=== PATIENT | male | born 1955 | race Caucasian/White ===

== ENCOUNTER → 2017-08-24 | Outpatient (CLI) | payer MEDICAID ==
[~2017-08-24] MED LIST: ACCUPRIL20 MG PO; ASPIRIN 81M81 MG/TA2 PO; CELEXA 20MG20 MG/TAB PO; KLONOPIN 1MG1 MG PO; LIORESAL 1010 MG/TAB PO; MOBIC 7.5MG7.5 MG; MULTAQ400 MG PO; NORCO 325 MG-51 TAB PO; PERCOCET 325 MG1 TA2 PO; PREDNISONE20 MG PO; PRINIVIL20 MG PO; PRINZIDE 12.5 M1 TA1 PO; SINEMET 25/101 UDTAB PO; UNABLE; WELLBUTRIN 75MG75 MG PO; ZANAFLEX2 MG PO; ZOCOR 20MG20 MG; ZOCOR 20MG20 MG PO; ZOCOR 40MG40 MG PO
[2017-08-24 16:11] LABS: AMPHETAMINE URINE NEGATIVE; BARBITURATES URINE NEGATIVE; BENZODIAZEPINES URINE NEGATIVE; BUPRENORPHINE URINE NEGATIVE; METHADONE URINE NEGATIVE; OPIATES URINE NEGATIVE; OXYCODONE URINE NEGATIVE; PHENCYCLIDINE URINE NEGATIVE; PROPOXYPHENE URINE NEGATIVE; THC CANNABINOIDS URINE NEGATIVE
== END ==
LOC: COL.LAB 15:06
PROVIDERS: Family Medicine
DX: G89.29 Other chronic pain (principal)

== ENCOUNTER → 2018-05-18 | Outpatient (CLI) | payer MEDICAID ==
[2018-05-18 16:09] LABS: COLLECTION METHOD CLEAN CATCH
[2018-05-18 16:24] LABS: BASO # 0.1 (0.0-0.2); BASO % 0.8 % (0.0-2.0); EOS # 0.1 (0.0-0.7); EOS % 1.6 % (0-4.0); GRAN # 6.5 (1.4-6.5); GRAN % 72.1 % (42.2-75.2); HEMATOCRIT 49.6 % (42.0-52.0); HEMOGLOBIN 16.6 g/dl (13.5-18.0); LYMPH # 1.4 (1.2-3.4); LYMPH % 15.9 % (20.0-51.0); MEAN CELL VOLUME 92 fl (80.0-100.0); MEAN CORPUSCULAR HEMOGLOBIN 31 pg (27.0-31.0); MEAN CORPUSCULAR HGB CONC 34 g/dl (33.0-37.0); MEAN PLATELET VOLUME 11.1 fl (7.4-10.4); MONO # 0.8 (0.1-0.6); PLATELET COUNT 260 K/mm3 (130-400); RED BLOOD COUNT 5.42 M/mm3 (4.20-5.60); REDCELL DISTRIBUTION WIDTH-CV 12.7 % (11.5-14.5)
[2018-05-18 16:24] LABS: MUCOUS Present /lpf; PH 5 (5-8); SQUAMOUS EPITHELIAL 0-2 /hpf; URINE APPEARANCE Cloudy; URINE BACTERIA Rare /hpf; URINE BILIRUBIN Negative (NEGATIVE); URINE BLOOD 1+ (NEGATIVE); URINE COLOR Amber; URINE GLUCOSE Negative (NEGATIVE); URINE KETONE Trace (NEGATIVE); URINE LEUKOCYTE ESTERASE 2+ (NEGATIVE); URINE NITRATE Negative (NEGATIVE); URINE PROTEIN(semi-quant) 2+ (NEGATIVE); URINE WBC >50 /hpf
[2018-05-18 16:27] LABS: ALBUMIN 4.1 gm/dL (3.5-5.0); BILIRUBIN,TOTAL 0.8 mg/dL (0.0-1.0); CALCIUM 9.6 mg/dL (8.4-10.2); CHOLESTEROL RISK RATIO 3.3; CREATININE, serum 1.29 mg/dL (0.66-1.25); POTASSIUM 4.6 mmol/L (3.4-5.0); TOTAL PROTEIN 7.2 gm/dL (6.4-8.2)
== END ==
LOC: COL.LAB 08:58
PROVIDERS: Family Medicine
DX: E78.00 Pure hypercholesterolemia, unspecified (principal); I10 Essential (primary) hypertension; R31.9 Hematuria, unspecified; N39.0 Urinary tract infection, site not specified

== ENCOUNTER 2018-10-29 11:30 | Emergency (ER) | payer MEDICAID ==
[~2018-10-29] VITALS: Ht 180.3 cm; Wt 86.4 kg
[2018-10-29 11:33] VITALS: BP 133/95; PULSE 60; TEMP 97.6
== END 2018-10-29 12:12 | disposition home or self-care (01) ==
LOC: COL.ER 11:30
DX: S29.9XXA Unspecified injury of thorax, initial encounter (principal); Y04.8XXA Assault by other bodily force, initial encounter

== ENCOUNTER 2019-01-02 08:21 | Emergency (ER) | payer MEDICAID | END 2019-01-02 09:33 | disposition home or self-care (01) | LOC: COL.ER 08:21 | DX: R22.2 Localized swelling, mass and lump, trunk (principal); F17.210 Nicotine dependence, cigarettes, uncomplicated; Z79.82 Long term (current) use of aspirin ==

== ENCOUNTER 2019-01-25 08:41 | Inpatient (IN) | payer MEDICAID ==
[~2019-01-25] VITALS: Ht 172.7 cm; Wt 80.3 kg
[2019-01-25] VITALS (50 sets, daily range): BP systolic 128–158; BP diastolic 78–92; PULSE 60–79; TEMP 97–98.1; O2SAT 93–100
[~2019-01-25 08:41] MED LIST changes: +AMOXICILLIN 8751 TAB PO; +DILAUDID 2MG TAB2 MG PO; +KLONOPIN 0.5MG0.5 MG PO; +ZOCOR 10MG10 MG PO; +ZOLOFT 50MG50 MG PO
[2019-01-25 08:49] LABS: ARTERIAL BLD GAS O2 SATURATION 94.3 % (92-100); ARTERIAL BLD GAS TCO2 CT 25.8; ARTERIAL BLOOD GAS BASE EXCESS -0.2 (-2-2); ARTERIAL BLOOD GAS HCO3 24.6 meq/L (22-26); ARTERIAL BLOOD GAS PCO2 40.6 mmHg (35-45); ARTERIAL BLOOD GAS PO2 72.2 mmHg (80-100)
[2019-01-25 08:53] LABS: BASO # 0.1 (0.0-0.2); BASO % 0.8 % (0.0-2.0); EOS # 0.2 (0.0-0.7); EOS % 2.5 % (0-4.0); GRAN # 5.3 (1.4-6.5); GRAN % 61.8 % (42.2-75.2); HEMATOCRIT 44.5 % (42.0-52.0); LYMPH # 2.2 (1.2-3.4); LYMPH % 25.3 % (20.0-51.0); MEAN CELL VOLUME 94 fl (80.0-100.0); MEAN CORPUSCULAR HEMOGLOBIN 32 pg (27.0-31.0); MEAN CORPUSCULAR HGB CONC 34 g/dl (33.0-37.0); MEAN PLATELET VOLUME 10.6 fl (7.4-10.4); MONO # 0.8 (0.1-0.6); MONO % 9.1 % (1.7-9.3); PLATELET COUNT 171 K/mm3 (130-400); RED BLOOD COUNT 4.73 M/mm3 (4.20-5.60); REDCELL DISTRIBUTION WIDTH-CV 14.1 % (11.5-14.5)
[2019-01-25 09:04] LABS: ALANINE AMINOTRANSFERASE 24 U/L (21-72); ALBUMIN 3.6 gm/dL (3.5-5.0); ALKALINE PHOSPHATASE 69 U/L (50-136); ANION GAP 5 mmol/L (7-16); AST,SGOT 20 U/L (15-37); BILIRUBIN,TOTAL 0.5 mg/dL (0.0-1.0); BLOOD UREA NITROGEN 14 mg/dL (9-20); CALCIUM 9.1 mg/dL (8.4-10.2); CARBON DIOXIDE 24 mmol/L (22-30); CHLORIDE 115 mmol/L (98-107); CREATININE, serum 1.07 mg/dL (0.66-1.25); GLUCOSE 101 mg/dL (74-106); POTASSIUM 3.7 mmol/L (3.4-5.0); SODIUM 144 mmol/L (137-145); TOTAL PROTEIN 6.3 gm/dL (6.4-8.2)
[2019-01-25 09:05] LABS: ACETAMINOPHEN < 10 ug/mL (10-30); ALCOHOL(ethanol),MEDICAL < 10 mg/dL; SALICYLATE < 1.0 mg/dL
[2019-01-25 09:17] LABS: TROPONIN-I < 0.012 ng/mL (0.000-0.035)
[2019-01-25 09:19] LABS: PROLACTIN 16.8 ng/mL (3.7-17.9)
[2019-01-25 09:35] LABS: LACTIC ACID 1.4 mmol/L (0.4-2.0)
--- NOTE | 2019-01-25 09:54 | NUR ---
SW responded to the ED to provide support for patient's . Patient came in via EMS with respiratory distress. SW stayed with patient's until she was able to see her . SW then informed patient's that patient will be admitted to the ICU and that she is able to go sit with him until he is admitted.
[2019-01-25 10:03] LABS: COLLECTION METHOD CATHETER
[2019-01-25 10:09] LABS: PH 7 (5-8); SQUAMOUS EPITHELIAL None Seen /hpf; URINE APPEARANCE Clear; URINE BACTERIA None Seen /hpf; URINE BILIRUBIN Negative (NEGATIVE); URINE BLOOD Negative (NEGATIVE); URINE COLOR Straw; URINE GLUCOSE Negative (NEGATIVE); URINE KETONE Negative (NEGATIVE); URINE LEUKOCYTE ESTERASE Negative (NEGATIVE); URINE NITRATE Negative (NEGATIVE); URINE PROTEIN(semi-quant) Negative (NEGATIVE); URINE RBC None Seen /hpf; URINE UROBILINOGEN Negative (NEGATIVE)
--- NOTE | 2019-01-25 10:20 | NUR ---
PATIENT ARRIVED TO ICU ROOM 1 VIA STRETCHER FROM THE ER. PATIENT WAS PLACED ON THE MONITOR. ALL VITAL SIGNS STABLE AT THIS TIME. HE IS CURRENTLY ON 2L NC. RESPONSIVENESS WAS CHECKED WITH STERNAL RUB. PATIENTS EYES OPENED AND HE CONTINUED TO STAY AWAKE. HIS SPEECH WAS VERY GARBLED AT THIS TIME.
[2019-01-25 10:36] LABS: TRICYCLIC ANTIDEPRESS URINE NEGATIVE
--- NOTE | 2019-01-25 10:47 | NUR ---
Initial visit; Patient brought into Emergency Services. Veneer Sorter was called to research consultant to his Chetna. Veneer Sorter listened and offered strength and prayer in attempts to calm her. She suffers from anxiety and fear of his . Veneer Sorter will contact her Air Conditioning Specialist as well.
[2019-01-25] MEDS ORDERED: LIORESAL 1010 MG/TAB PO (11:25)
[2019-01-25] MEDS ORDERED: NORCO 325 MG-51 TAB PO (11:26)
--- NOTE | 2019-01-25 18:00 | NUR ---
PATIENT MUCH MORE AWAKE IN ROOM. HE IS HOLLERING FOR HIS . HE STATES HE WANTS TO GO HOME. ATTEMPTS WERE MADE TO REORIENT HIM. HE WAS GIVEN SOME WATER TO DRINK. DENIES ANY FURTHER NEEDS.
--- NOTE | 2019-01-25 19:00 | NUR ---
REPORT GIVEN TO JASMYN WORLEY.
--- NOTE | 2019-01-25 19:00 | NUR ---
Bedside report received from Rosalie Esparza RN. Pt resting in bed with eyes intermittently open and closed throughout report.
--- NOTE | 2019-01-25 22:30 | NUR ---
Pts spouse arrived onto the unit. At that time pt hollered out, pts spouse heard the noise and anxiety was seen on spouses face at that time knowing it was "my ." This nurse walked down to pts room from the medication room at that time once hollering out was heard, a few moments later patients spouse arrived at bedside notifying pt "if you dont calm down you are going to have your spasm. They are trying to help you. If you dont calm down they wont let you come home with me." Pt kept reporting to staff the need to "sit up" although pt was already in a high fowlers position, as high as the bed would allow for a seated position in addition to two pillows behind the pts head. Pt was assisted, with two staff members, boosted higher in the bed with noted improvement in symptoms until pt requested to lay back. Once staff left the room with spouse moments later another visitor arrived, with bed once again adjusted to a high fowlers position and a towel beind pts head. Pain medication was provided due to complaints and external signs of pain at this time.
[2019-01-26] VITALS: BP 153/90; PULSE 79
--- NOTE | 2019-01-26 00:30 | NUR ---
Pt resting in high fowlers position and is awake talking. Pt is alone in the room at this time and has been observed intermittently looking up to the ceiling above the pts left shoulder repeating "your a liar, your lying". When the pt was asked about what was being said pt kept repeating "Angelo is a liar. He doesnt lie. Do you lie?" Pts neurological status was assessed at this time although pt was unable to answer most of the orientation questions with continued confusion noted in conversation.
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
--- NOTE | 2019-01-26 01:50 | NUR ---
Report provided to Brennan VINES.
[2019-01-26 04:00] VITALS: BP 159/76; PULSE 79
[2019-01-26 05:51] LABS: BASO # 0.1 (0.0-0.2); BASO % 0.3 % (0.0-2.0); GRAN % 87.4 % (42.2-75.2); HEMATOCRIT 42.2 % (42.0-52.0); HEMOGLOBIN 13.9 g/dl (13.5-18.0); LYMPH # 1.1 (1.2-3.4); LYMPH % 5.1 % (20.0-51.0); MEAN CELL VOLUME 96 fl (80.0-100.0); MEAN CORPUSCULAR HEMOGLOBIN 32 pg (27.0-31.0); MEAN CORPUSCULAR HGB CONC 33 g/dl (33.0-37.0); MONO # 1.4 (0.1-0.6); MONO % 6.2 % (1.7-9.3); PLATELET COUNT 173 K/mm3 (130-400); RED BLOOD COUNT 4.39 M/mm3 (4.20-5.60); REDCELL DISTRIBUTION WIDTH-CV 14.4 % (11.5-14.5)
[2019-01-26 06:05] LABS: CALCIUM 8.9 mg/dL (8.4-10.2); CREATININE, serum 1.03 mg/dL (0.66-1.25); POTASSIUM 3.8 mmol/L (3.4-5.0)
--- NOTE | 2019-01-26 07:15 | NUR ---
BEDSIDE REPORT RECEIVED FROM JASMYN MURRIETA. PATIENT AWAKE AND ALERT. HE IS CONFUSED AND TALKING ABOUT NEEDING TO GET TO HIS DOCTOR'S OFFICE TO SEE HIS PCP. I ATTEMPT TO REORIENT THE PATIENT AND EXPLAIN TO HIM THAT HE IS IN THE HOSPITAL. PATIENT IS REPOSITIONED AT THIS TIME. CALL LIGHT WITHIN REACH.
[2019-01-26 08:30] VITALS: BP 160/91; PULSE 79; TEMP 97.4
--- NOTE | 2019-01-26 08:55 | NUR ---
Follow-up visit; Patient seems agitated regarding medication he thinks he is supposed to be taking. Outreach Nurse attempted to address his spiritual needs with little results but wished him well.
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
[2019-01-26 12:00] VITALS: BP 157/118; PULSE 80
[2019-01-26 12:27] LABS: BASO # 0.1 (0.0-0.2); BASO % 0.3 % (0.0-2.0); EOS % 0.1 % (0-4.0); GRAN # 16.3 (1.4-6.5); GRAN % 87.4 % (42.2-75.2); HEMATOCRIT 40.9 % (42.0-52.0); HEMOGLOBIN 13.5 g/dl (13.5-18.0); LYMPH # 1.1 (1.2-3.4); LYMPH % 6.1 % (20.0-51.0); MEAN CELL VOLUME 96 fl (80.0-100.0); MEAN CORPUSCULAR HEMOGLOBIN 32 pg (27.0-31.0); MEAN CORPUSCULAR HGB CONC 33 g/dl (33.0-37.0); MEAN PLATELET VOLUME 10.8 fl (7.4-10.4); MONO # 1.1 (0.1-0.6); MONO % 5.7 % (1.7-9.3); PLATELET COUNT 161 K/mm3 (130-400); RED BLOOD COUNT 4.28 M/mm3 (4.20-5.60); REDCELL DISTRIBUTION WIDTH-CV 14.5 % (11.5-14.5)
--- NOTE | 2019-01-26 13:15 | NUR ---
[facility] HERE TO EVALUATE PATIENT, PER DR. DWAINE RODRIGUEZ.
--- NOTE | 2019-01-26 14:00 | NUR ---
EVERY TIME THIS RN ENTERS THE ROOM, HE REPEATEDLY TELLS ME WHAT HAS HAPPENED THROUGH THE DAY. HE TALKS ABOUT A "DON" OR "THAIS" IN HIS ROOM (THIS PERSON IS NOT THERE). HE TELLS ME ABOUT MISSING A DOCTORS APPOINTMENT WITH HIS PCP AND IS VERY WORRIED ABOUT GETTING IT RESCHEDULED. I TRY TO REASSURE HIM THAT HE WILL HAVE A HOSPITAL FOLLOW UP SET UP AT DISCHARGE. I ATTEMPT TO REORIENT THE PATIENT MULTIPLE TIMES TODAY. HE QUICKLY BECOMES, CONFUSED, PARANOID, AND GETS AGITATED AT LOUD NOISES. I HAVE ALSO ATTEMPTED TO REDUCE THE NOISE IN HIS ROOM. WILL CONTINUE TO MONITOR
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
[2019-01-26 16:19] VITALS: BP 129/84; PULSE 80; TEMP 98.7
--- NOTE | 2019-01-26 18:00 | NUR ---
PATIENT IS ASSISTED WITH GETTING SET UP FOR SUPPER. NO DENTURES COULD BE FOUND IN THE ROOM OR WITH HIS BELONGINGS. THE PATIENT IS REMINDED TO CHEW HIS FOOD THOROUGHLY AND BE CAREFUL WITH EATING SO THAT HE DOESN'T CHOKE. HE VERBALIZES UNDERSTANDING.
[2019-01-26 20:00] VITALS: BP 148/92; PULSE 73; TEMP 98.1
[2019-01-27] VITALS: BP 140/89; PULSE 70; TEMP 98
[2019-01-27 04:00] VITALS: BP 142/81; PULSE 69; TEMP 98
[2019-01-27 05:35] LABS: BASO % 0.3 % (0.0-2.0); EOS % 0.2 % (0-4.0); GRAN # 10.4 (1.4-6.5); HEMATOCRIT 41.2 % (42.0-52.0); HEMOGLOBIN 13.6 g/dl (13.5-18.0); LYMPH # 1.2 (1.2-3.4); LYMPH % 9.2 % (20.0-51.0); MEAN CELL VOLUME 96 fl (80.0-100.0); MEAN CORPUSCULAR HEMOGLOBIN 32 pg (27.0-31.0); MEAN CORPUSCULAR HGB CONC 33 g/dl (33.0-37.0); MEAN PLATELET VOLUME 11.1 fl (7.4-10.4); MONO # 1.1 (0.1-0.6); MONO % 8.9 % (1.7-9.3); PLATELET COUNT 160 K/mm3 (130-400); RED BLOOD COUNT 4.31 M/mm3 (4.20-5.60); REDCELL DISTRIBUTION WIDTH-CV 14.3 % (11.5-14.5)
[2019-01-27 05:58] LABS: CALCIUM 9.2 mg/dL (8.4-10.2); CREATININE, serum 0.95 mg/dL (0.66-1.25); POTASSIUM 3.7 mmol/L (3.4-5.0)
[2019-01-27 08:00] VITALS: BP 140/94; PULSE 67; TEMP 98
--- NOTE | 2019-01-27 08:00 | NUR ---
PATIENT SITTING UP IN BED EATING BREAKFAST. HE IS AWAKE AND ALERT. HE CAN ANSWER MOST QUESTIONS APPROPRIATE, HOWEVER HE DOES OCCASSIONAL GET DISTRACTED AND MAKE COMMENTS ABOUT A MAN IN THE CORNER. ASSESSMENT WAS COMPLETED. PATIENT DENIES ANY FURTHER NEEDS AT THIS TIME.
[2019-01-27 12:00] VITALS: BP 148/94; PULSE 67; TEMP 98.2
--- NOTE | 2019-01-27 13:40 | NUR ---
REPORT GIVEN TO JASMYN BULLOCK ON MEDICAL. PATIENT WILL BE TAKEN BY BED TO ROOM 355. HE WAS PLACED ON PORTABLE TELEMETRY. FILIBERTO CALLED AND NOTIFIED OF ROOM CHANGE.
--- NOTE | 2019-01-27 14:22 | NUR ---
RITU had a long discussion with patients , Nidia Payton, about a safe discharge plan. RITU discussed terminal gauger supervisor care being the best option for patient because he is now having more needs at home. Patient was very tearful and feeling like she failed him. RITU reassured her that she was a good etch operator semiconductor wafers for patient but he is at the point where he needs more care and 24/7 nursing. Patient's was agreeable to RITU faxing referrals to all three nursing homes in [place]. She signed a choice form for [facility]. [facility]. [facility]. RITU faxed referrals. Nidia Payton reported she would like to speak with her son, Deacon, and patient's brother, Iraj, about this discharge plan before speaking with patient. RITU also informed that patient will be transfered to medical floor today. RITU will continue to follow.
--- NOTE | 2019-01-27 15:15 | NUR ---
Patient arrived to room 355 from ICu at this time, he is alert/oriented, and denies needs at this time, bed alarm set
[2019-01-27 17:00] VITALS: BP 145/90; PULSE 70; TEMP 98.5
[2019-01-27 18:43] VITALS: BP 160/89; PULSE 71; TEMP 97.7
--- NOTE | 2019-01-27 22:04 | NUR ---
PT resting in bed alert orientedx3. no pain at the moment but reported some abd pain with nausea earlier. chilel is draining freely, no kinks. secured. tele on. bed alarm on . no needs at this time. call light in reach
[2019-01-28 01:02] VITALS: BP 160/93; PULSE 77; TEMP 97.4
[2019-01-28 05:41] VITALS: BP 154/83; PULSE 76; TEMP 98
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
[2019-01-28 07:27] VITALS: BP 144/86; PULSE 81; TEMP 97.7
--- NOTE | 2019-01-28 09:15 | NUR ---
Patient has been very anxious this AM. Trying to get in and out of bed. AM cares done. Bath; hair wash and shave done. Patient voices feeling a lot better. Patient is alert and oriented x 3. Able to tell this nurse it is 2019; he is at the hospital and the president is Joan. There is some noted confusion/delusional ideation. He believes the police are here and are coming to get him to take him to penitentiary. Provided reinforcement that the police were not here, he was in the hospital and not going to penitentiary. He verbalizes understanding but then will ask the same questions over and over again. Patient removes telemetry and refuses to allow this nurse to reapply. Patient assisted to chair with a gait belt and one assist. Very unsteady with transfers; jumpy and hard to move. He is unable to stand on his feet. Patient's breakfast ordered. No other needs at this time. Chair alarm on at this time.
[2019-01-28 10:24] LABS: BASO % 0.3 % (0.0-2.0); EOS % 0.5 % (0-4.0); GRAN # 7.3 (1.4-6.5); HEMATOCRIT 44.7 % (42.0-52.0); HEMOGLOBIN 14.8 g/dl (13.5-18.0); LYMPH # 0.7 (1.2-3.4); LYMPH % 8.3 % (20.0-51.0); MEAN CELL VOLUME 94 fl (80.0-100.0); MEAN CORPUSCULAR HEMOGLOBIN 31 pg (27.0-31.0); MEAN CORPUSCULAR HGB CONC 33 g/dl (33.0-37.0); MEAN PLATELET VOLUME 11.1 fl (7.4-10.4); MONO # 0.7 (0.1-0.6); MONO % 7.6 % (1.7-9.3); PLATELET COUNT 164 K/mm3 (130-400); RED BLOOD COUNT 4.75 M/mm3 (4.20-5.60); REDCELL DISTRIBUTION WIDTH-CV 13.7 % (11.5-14.5)
[2019-01-28 10:44] LABS: CALCIUM 9.4 mg/dL (8.4-10.2); CREATININE, serum 0.86 mg/dL (0.66-1.25); POTASSIUM 4.1 mmol/L (3.4-5.0)
[2019-01-28 11:11] VITALS: BP 148/87; PULSE 73; TEMP 97.9
--- NOTE | 2019-01-28 15:07 | NUR ---
Patient's is here wanting to visit with MD and director social. Manager Ent made aware of wifes request. Call placed to Dr. Dupree regarding the wifes request to visit with her. Patient is more calm then earlier today. Had been up to chair x 4 hours and then back to bed. Ate 80% of his lunch. Patient denies any needs at this time. Up to commode. Large BM. Call light in place
[2019-01-28 16:12] VITALS: BP 131/74; PULSE 72; TEMP 97.6
--- NOTE | 2019-01-28 18:19 | NUR ---
has been in all afternoon off/on. She has had erratic behaviors. Getting upset; loud and throwing her arms around when she wants something or "he is really crazy and I cant handle this anymore" speaks loudly to patient at times sounding as if she is yelling at the patient. Patient is remained alert and oriented but has moments that he is talking about things that are not understandable. Noted when listening to patient he can be understandable and redirected. Douglas patent with clear yellow urine.
[2019-01-28 20:37] VITALS: BP 112/70; PULSE 81; TEMP 97.4
--- NOTE | 2019-01-28 21:00 | NUR ---
PT resting in bed, no pain. Alert and oriented to self but not place. foleu draining freely, no kinks. pt reports no needs at this time. call light in reach. bed alrm on
--- NOTE | 2019-01-29 | NUR ---
pt began to become aggitated. yelling "my is out dancing and fucking with another man, see she is right there! dont you hear her" "look there is Nidia Pires with Angelo" "look there is a baby, Higinio, she is scared" pt states seeing cars in hallway, seeing and hearing Nidia Pires and Angelo. trying to get out of bed. this nurse call hospitalist, 0.5 mg of ativan odered and given. one on one sitter placed at this time. will continue to monitor. no needs at this time. bed alrm on sitter in place.
[2019-01-29 00:22] VITALS: BP 133/86; PULSE 86; TEMP 98
--- NOTE | 2019-01-29 01:47 | NUR ---
pt sleeping, sitter removed
--- NOTE | 2019-01-29 05:40 | NUR ---
pt had a few episoded of wakening and confusion. had a sitter 2 hours during night d/t extreme agitation- one time 0.5mg dose of ativan given- pt camled 45 mins after med. resting at this time with bed alarm in. chilel is draining freely. no kinks, secured to leg. pt on RA. no needs at this time. call light with pt.
--- NOTE | 2019-01-29 07:16 | NUR ---
report given to JASMYN Rodriguez. pt reports no needs at this time
[2019-01-29 07:26] VITALS: BP 159/82; PULSE 74; TEMP 98.6
--- NOTE | 2019-01-29 09:43 | NUR ---
PATIENT ASSESSMENT COMPLETED. HE IS IN BED BUT KEEPS LOOKING OUT IN THE HALLWAY LOOKING FOR HIS FAMILY AND WHEELCHAIR. BED ALARM IS ON. HE THINKS THAT EVERYONE THAT IS OUT AT THE DESK ARE HIS BOYS. DENIES PAIN AT THIS TIME.
--- NOTE | 2019-01-29 10:02 | NUR ---
PATIENT IS ASSISTED TO THE RECLINER IN HIS ROOM CHAIR ALARM TURNED ON
[2019-01-29 10:51] LABS: BASO # 0.1 (0.0-0.2); BASO % 0.8 % (0.0-2.0); EOS # 0.1 (0.0-0.7); EOS % 0.8 % (0-4.0); GRAN # 4.8 (1.4-6.5); GRAN % 73.2 % (42.2-75.2); HEMATOCRIT 43.3 % (42.0-52.0); HEMOGLOBIN 14.6 g/dl (13.5-18.0); LYMPH # 0.8 (1.2-3.4); LYMPH % 11.9 % (20.0-51.0); MEAN CELL VOLUME 93 fl (80.0-100.0); MEAN CORPUSCULAR HEMOGLOBIN 31 pg (27.0-31.0); MEAN CORPUSCULAR HGB CONC 34 g/dl (33.0-37.0); MEAN PLATELET VOLUME 10.7 fl (7.4-10.4); MONO # 0.8 (0.1-0.6); MONO % 12.7 % (1.7-9.3); PLATELET COUNT 210 K/mm3 (130-400); RED BLOOD COUNT 4.66 M/mm3 (4.20-5.60); REDCELL DISTRIBUTION WIDTH-CV 13.6 % (11.5-14.5)
[2019-01-29 11:02] VITALS: BP 169/85; PULSE 85; TEMP 97.8
[2019-01-29 11:04] LABS: CALCIUM 9.4 mg/dL (8.4-10.2); CREATININE, serum 1.03 mg/dL (0.66-1.25); POTASSIUM 3.4 mmol/L (3.4-5.0)
--- NOTE | 2019-01-29 14:30 | NUR ---
PATIENT SITING UP IN THE BED AND IS TALKING TO HIS SISTER EDY SALTER. SHE IS NOT PHYSICALLY IN THE ROOM, HE IS WANTING A CIGARETTE BUT DOESN'T WANT A PATCH. BED ALARM IS ON
[2019-01-29 14:47] LABS: TRICYCLIC ANTIDEPRESS URINE NEGATIVE
[2019-01-29 15:22] VITALS: BP 157/56; PULSE 81; TEMP 98.1
--- NOTE | 2019-01-29 16:00 | NUR ---
[facility] DCD PER ORDERS. TOLERATES WELL
--- NOTE | 2019-01-29 16:30 | NUR ---
PATIENT IS JUST TALKING AND TALKING IN HIS BED ABOUT HAVING TO GO TO COURT AND HOW IS "SMOKES WEED" AND ALL HE NEEDS TO GO TO SMOKE. BED ALARM ON. ASSISTANCE WAS PROVIDED FOR ORDERING SUPPER
[2019-01-29 17:46] VITALS: BP 139/94; PULSE 86; TEMP 97.4
--- NOTE | 2019-01-29 17:48 | NUR ---
PATIENT DROPS FORK ON THE FLOOR AND TRIES TO PICK IT UP ALARM SOUNDS. I ENTER THE ROOM AND PATIENT IS HAVING DIFFICULTY WITH SAYING WORDS (WORD SALAD). VS OBTAINED. I HAVE NOTIFIED DR. GUDINO, NO NEW ORDERS AT THIS TIME. HE CONTINUES TO FOLLOW DIRECTIONS WITHOUT DIFFICULTY.
--- NOTE | 2019-01-29 17:56 | NUR ---
PATIENT SPEECH IS A LITTLE MORE CLEAR. HE IS REQUESTING A LITTLE SIP OF BEER. HE HAS EATTEN ABOUT HALF OF HIS SUPPER AND WANTS TO COVER IT AND WAIT TO EAT THE REST IN A LITTLE WHILE. BED ALARM IS ON.
[2019-01-29 19:49] VITALS: BP 151/92; PULSE 78; TEMP 98.2
--- NOTE | 2019-01-29 20:56 | NUR ---
Pt resting in bed watching TV, no C/O pain at this time, shift assessments complete, left Pt call light in reach, bed in lowesy position alarm on.
--- NOTE | 2019-01-30 03:40 | NUR ---
Pt showing increased aggitation, not oriented as to location and is having hallucinations, requested medication from route driver salesperson and administered 0.5 mg atavan per order received.
[2019-01-30 04:25] VITALS: BP 158/94; PULSE 80; TEMP 97.7
--- NOTE | 2019-01-30 05:18 | NUR ---
Pt resting more comfortably after being given atavan, he is currently sleeping, Pt has no C/O pain but during the night tried several times to leave the bed, he was disoriented as to his location still thinking he was in his apartment, Pt needed frequent reorientation as to his current location. Pt's was in the room during the night.
[2019-01-30 07:21] VITALS: BP 149/79; PULSE 66; TEMP 98.4
[2019-01-30 07:47] LABS: BASO % 0.6 % (0.0-2.0); EOS # 0.1 (0.0-0.7); GRAN # 4.6 (1.4-6.5); GRAN % 65.1 % (42.2-75.2); HEMOGLOBIN 14.1 g/dl (13.5-18.0); LYMPH # 1.2 (1.2-3.4); LYMPH % 17.4 % (20.0-51.0); MEAN CELL VOLUME 93 fl (80.0-100.0); MEAN CORPUSCULAR HEMOGLOBIN 31 pg (27.0-31.0); MEAN CORPUSCULAR HGB CONC 34 g/dl (33.0-37.0); MEAN PLATELET VOLUME 10.2 fl (7.4-10.4); MONO % 13.9 % (1.7-9.3); PLATELET COUNT 191 K/mm3 (130-400); RED BLOOD COUNT 4.51 M/mm3 (4.20-5.60); REDCELL DISTRIBUTION WIDTH-CV 13.4 % (11.5-14.5)
[2019-01-30 07:55] LABS: CREATININE, serum 0.97 mg/dL (0.66-1.25); POTASSIUM 3.5 mmol/L (3.4-5.0)
--- NOTE | 2019-01-30 08:03 | NUR ---
Assessment completed, alert/ partially oriented, denies pain, vital signs stable, his in present at bedside, lungs CTA/ diminished, heart RRR, patient will have brain MRI per neuro recs, awaiting psych consult and will discuss plan of care with social work today for dishcarge planning, has ordered his breakfast, I have administered morning medicaitons, he denies othe needs at this time, bed alarm is set
--- NOTE | 2019-01-30 14:42 | NUR ---
R[facility]U spoke with both [facility] and [facility]. Both will not be able to accept patient. RITU spoke with Germaien from [facility]. She reports they will likley be able to accept patient but would like patient's psych screen from Precious. RITU requested Precious's notes and will fax them to [facility].
--- NOTE | 2019-01-30 14:43 | NUR ---
Patient more agitated and confused this afternoon, his bed alarm had went off multiple times in the last couple hours, at 1410 his alarm went off and when ASSISTANT HEAD CASHIER and myself quickly got to the room we observed the patient sititng on the floor next to the bed, he denies falling or hitting his head and stated he was trying to get to the carpet in the shankar way, we were able to help him to his feet and get back to bed, his vital signs are stable and unchanged from earlier, no obvious injury noted, Charge nurse present to assist, kennethitlile HARTLEY notified, he has sence continued to try and get out of bed, we are continuing to redirect and reorient the patient, incident report completed
[2019-01-30 15:12] VITALS: BP 163/91; PULSE 87; TEMP 98.4
--- NOTE | 2019-01-30 16:11 | NUR ---
RITU met with patient's , Nidia Payton, and doctor. Patients is worried she is making the wroing decision with patient's discharge plan. Doctor reassured her that she is doing what is best for the patient. Nidia Payton reports she would like everyone (Deacon (son), Liudmila (family friend), and herself)) to have a family meeting. RITU contacted Dae[facility] and he reports he can be here tomorrow morning at 10am. RITU left a message for Liudmila.
--- NOTE | 2019-01-30 18:58 | NUR ---
Report given to JASMYN Sanchez, Bed alarm on at this time
[2019-01-30 19:16] VITALS: BP 103/57; PULSE 84; TEMP 98.1
--- NOTE | 2019-01-30 21:04 | NUR ---
Pt resting in bed, no signs on aggitation at time, no C/O pain, shift assessments complete, left Pt call light in reach, bed in lowest position.
--- NOTE | 2019-01-31 03:03 | NUR ---
Pt became increasingly aggitated and he was not oriented to place or time, Pt required constant reorientation, PRN atavan was administered.
[2019-01-31 04:21] VITALS: BP 150/77; PULSE 68; TEMP 96.1
--- NOTE | 2019-01-31 05:21 | NUR ---
Pt did not sleep during the night, several times he needed reorietation to place and time, Pt became aggitated early this morning and PRN atavan was administered.
--- NOTE | 2019-01-31 07:00 | NUR ---
physical assessment completed, pheriperal wheezes noted lung sgld heath noted w/a productive cough, calm and alert sitting up in chair, sitter present. INT L hand intact/no redness noted at side.
[2019-01-31 08:00] VITALS: BP 134/71; PULSE 77; TEMP 98.7
--- NOTE | 2019-01-31 09:49 | NUR ---
Follow-up visit; Patient's ; Nidia Pires thanked Civil Engineering Design Draftsperson for listening and offering comfort.
[2019-01-31 11:00] VITALS: BP 146/81; PULSE 71; TEMP 98.4
--- NOTE | 2019-01-31 11:00 | NUR ---
No changes with assessment
--- NOTE | 2019-01-31 14:13 | NUR ---
RITU met with patient's about discharge plan this morning. She reports her son is not able to attend the family meeting and she would like SW to contact patient's son, Deacon, about discharge plan. Patient's and son are both agreeable to the plan. RITU spoke with patient's later and she reports patient is also agreeable to the discharge plan. Patient will discharge to [facility] today. RITU will arrange transportation and fax discharge orders.
[2019-01-31] MEDS ORDERED: PRINIVIL10 MG PO (14:21)
[2019-01-31] MEDS ORDERED: LIORESAL 1010 MG/TAB PO (14:21)
[2019-01-31] MEDS ORDERED: KLONOPIN 0.5MG0.5 MG PO (14:23)
--- NOTE | 2019-01-31 17:28 | NUR ---
Transfer report called to recieving nurse at [facility], IV removed prior to discharge, present at time of discharge, he left with [facility] transport personel, at 1700
--- NOTE | 2019-02-01 14:57 | NUR ---
construction pit worker informed Dee with Adult Protective Services that patient transferred to [facility].
== END 2019-01-31 18:16 | DRG 917 ==
LOC: COL.ER 08:41 → ICU 10:11 → MEDICAL 01-27 14:50
PROVIDERS: Emergency Medicine; Family Medicine; Physician Assistant; ADMIT Family Medicine
DX: T42.4X1A Poisoning by benzodiazepines, accidental (unintentional), initial encounter (principal); G92 Toxic encephalopathy; J18.9 Pneumonia, unspecified organism; G93.41 Metabolic encephalopathy; I48.92 Unspecified atrial flutter; F05 Delirium due to known physiological condition; G93.1 Anoxic brain damage, not elsewhere classified; G11.1 Early-onset cerebellar ataxia; I48.91 Unspecified atrial fibrillation; G20 Parkinson's disease; I10 Essential (primary) hypertension; E78.00 Pure hypercholesterolemia, unspecified; F17.210 Nicotine dependence, cigarettes, uncomplicated; F12.10 Cannabis abuse, uncomplicated; F32.9 Major depressive disorder, single episode, unspecified; F03.90 Unspecified dementia, unspecified severity, without behavioral disturbance, psychotic disturbance, mood disturbance, and anxiety; R44.1 Visual hallucinations; Z91.81 History of falling
CPT/HCPCS: 99223-AI; 99232-AI; 99233-AI; 99239; A4216; A9585; J0696; J1650; J2060; J7030

== ENCOUNTER 2019-03-14 11:58 | Emergency (ER) | payer MEDICAID ==
[~2019-03-14] VITALS: Ht 180.3 cm; Wt 82.7 kg
[~2019-03-14 11:58] MED LIST changes: +PRINIVIL10 MG PO
[2019-03-14 12:13] VITALS: TEMP 97.6
[2019-03-14 13:20] VITALS: BP 158/103; PULSE 62
== END 2019-03-14 13:30 | disposition home or self-care (01) ==
LOC: COL.ER 11:58
DX: H61.23 Impacted cerumen, bilateral (principal); I48.91 Unspecified atrial fibrillation; G20 Parkinson's disease; Z90.89 Acquired absence of other organs; F17.210 Nicotine dependence, cigarettes, uncomplicated

== ENCOUNTER 2019-08-27 10:18 | Emergency (ER) | payer MEDICAID ==
[~2019-08-27] VITALS: Ht 180.3 cm; Wt 81.8 kg
[2019-08-27 10:33] VITALS: BP 154/88
[2019-08-27] MEDS ORDERED: MOTRIN 800800 MG/TAB PO (11:50)
[2019-08-27 12:05] VITALS: PULSE 68; TEMP 97.9
== END 2019-08-27 12:10 | disposition home or self-care (01) ==
LOC: COL.ER 10:18
DX: S43.121A Dislocation of right acromioclavicular joint, 100%-200% displacement, initial encounter (principal); I10 Essential (primary) hypertension; I48.91 Unspecified atrial fibrillation; G20 Parkinson's disease; F17.210 Nicotine dependence, cigarettes, uncomplicated; Z79.82 Long term (current) use of aspirin; W06.XXXA Fall from bed, initial encounter; Y92.009 Unspecified place in unspecified non-institutional (private) residence as the place of occurrence of the external cause

== ENCOUNTER 2021-08-22 10:17 | Outpatient (RCR) | payer MEDICARE, MEDICAID ==
[~2021-08-22 10:17] MED LIST changes: +MOTRIN 800800 MG/TAB PO
== END 2021-11-07 | disposition home or self-care (01) ==
LOC: MKS.ESL.OT
DX: S82.891A Other fracture of right lower leg, initial encounter for closed fracture (principal); F41.9 Anxiety disorder, unspecified; R47.9 Unspecified speech disturbances